=== PATIENT | male | born 1945 | race Hispanic/Latino ===

== ENCOUNTER 2017-11-29 22:42 | Emergency (ER) | payer MEDICARE, OTHER ==
[2017-11-29 23:00] VITALS: BP 124/67
[2017-11-30] MEDS ORDERED: BSS ONE (01:35)
[2017-11-30] MEDS ORDERED: FUL-GLO OP ONE ×2 (01:35→03:01)
[2017-11-30] MEDS ORDERED: TETRACAINE 0.5% ONE (01:36)
--- NOTE | 2017-11-30 02:36 | Emergency Department Report ---
[facility] Chief Complaint: Eye Problems Stated Complaint: LT EYE IRRITATION Time Seen by Provider: 11/30/17 01:46 Duration: 2 Days Side: Left Symptoms: Yes Eye Itching, Yes Eye Redness, Yes Mucous Drainage, Yes Purulent Drainage, No Eye Pain, No Blurred Vision, No Preceding URI, No H/O Allergic Rhinitis, No Contact Lens Use, No Trauma, No Fever, No Headache Other History: 72-year-old male past medical history CAD, heart murmur presents with complaint of 2 days of left-sided eye irritation redness and greenish discharge. Patient is awake alert and oriented 3 not in acute distress accompanied by at bedside. Denies any direct trauma to eye. States he may have been exposed to pinkeye within the last 2 days of epigastric age in by employee. Denies any foreign body sensation left eye. Denies any substances splashing onto eye. ED Review of Systems ROS: Stated complaint: LT EYE IRRITATION Other details as noted in HPI Constitutional: denies: chills, fever Eyes: eye discharge. denies: eye pain, vision change ENT: denies: ear pain, throat pain Respiratory: denies: cough, shortness of breath, wheezing Cardiovascular: denies: chest pain, palpitations Endocrine: no symptoms reported Gastrointestinal: denies: abdominal pain, nausea, diarrhea Genitourinary: denies: urgency, dysuria Musculoskeletal: denies: back pain, joint swelling, arthralgia Skin: denies: rash, lesions Neurological: denies: headache, weakness, paresthesias Psychiatric: denies: anxiety, depression Hematological/Lymphatic: denies: easy bleeding, easy bruising ED Past Medical Hx - Past Medical History Previous Medical History?: Yes Additional medical history: cardiac - Surgical History Past Surgical History?: Yes Additional Surgical History: shoulder - Social History Smoking Status: Never Smoker Substance Use Type: None - Medications Home Medications: Home Medications Medication Instructions Recorded Confirmed Last Taken Type Acetaminophen [Acetaminophen TAB] 500 mg PO Q6HR PRN #20 tablet 11/30/17 Unknown Rx Polymyxin B Sulf/Trimethoprim 1 ml OP Q4H #1 drops 11/30/17 Unknown Rx [Polytrim Eye Drops] [facility] Exam - Exam General: Vital signs noted. No distress. Alert and acting appropriately. Eye Exam: Left Injection, Left Chemosis, Left Mucous Discharge, Left Purulent Discharge, Both EOMI, Neither Abnormal Pupil, Neither Eye Foreign Body, Neither Lid Foreign Body HEENT: No Nasal Congestion, No Pharyngeal Erythema Remainder of HEENT: Normal Lungs: Yes Clear Lung Sounds, Yes Good Air Exchange, No Wheezes, No Stridor, No Cough, No Nasal Flaring, No Retractions, No Use of Accessory Muscles ED Course Vital Signs 11/29/17 22:56 Temperature 98 F Pulse Rate 75 Respiratory 16 Rate Blood Pressure 124/67 O2 Sat by Pulse 94 Oximetry ED Medical Decision Making - Medical Decision Making A/P: Conjunctivitis 1-Polytrim drops 2-Tylenol when necessary 3-artificial tears 4- overall vision 20/20. Intraocular pressure 19 left eye. Follow-up with ophthalmology and primary care Critical care attestation.: If time is entered above; I have spent that time in minutes in the direct care of this critically ill patient, excluding procedure time. ED Disposition Clinical Impression: Conjunctivitis, left eye Qualifiers: Conjunctivitis type: acute Acute conjunctivitis type: unspecified Qualified Code(s): H10.32 - Unspecified acute conjunctivitis, left eye Disposition: TO HOME OR SELFCARE Is pt being admited?: No Does the pt Need Aspirin: No Condition: Stable Instructions: Conjunctivitis (ED) Prescriptions: Acetaminophen [Acetaminophen TAB] 500 mg PO Q6HR PRN #20 tablet PRN Reason: Pain , Severe (7-10) Polymyxin B Sulf/Trimethoprim [Polytrim Eye Drops] 1 ml OP Q4H #1 drops Referrals: BLAIRE PAVON MD [Staff Physician] - 3-5 Days ELLIOT SOUTH MD [Staff Physician] - 3-5 Days Time of Disposition: 02:35
[2017-11-30] MEDS ORDERED: TETRACAINE 0.5% OU ONE (03:01)
== END 2017-11-30 02:41 | disposition home or self-care (01) ==
LOC: ED 22:42
DX: H10.32 Unspecified acute conjunctivitis, left eye (principal); Z86.79 Personal history of other diseases of the circulatory system
CPT/HCPCS: 99283